=== PATIENT | female | born 1960 | race Caucasian/White ===

== ENCOUNTER 2021-02-06 15:19 | Emergency (ER) | payer OTHER ==
[~2021-02-06] VITALS: Ht 152.4 cm; Wt 54.9 kg
[~2021-02-06 15:19] MED LIST: APIDRA SOL100 UNIT/1 SQ; JANUMET 50-1,01 EACH PO; LOPID600 MG PO; NEURONTIN 400400 MG PO; PROTONIX 40 MG40 M1 PO; TAMIFLU75 MG PO; TENORMIN 50 MG50 MG PO; TRESIBA SQ; VENLAFAXINE HC150 M1 PO; VITAMIN D250000 UNIT PO
[2021-02-06 16:51] LABS: HEMOGLOBIN 15.7 gm/dl (12.3-15.3); RED BLOOD COUNT 5.22 M/UL (4.00-5.10); WHITE BLOOD COUNT 8.7 K/UL (4.5-11.0)
[2021-02-06 17:17] LABS: BUN/CREATININE RATIO 39 (0-10)
[2021-02-06] MEDS ORDERED: DECADRON6 MG PO (19:57)
[2021-02-06] MEDS ORDERED: ZITHROMAX250 MG PO (19:57)
[2021-02-06] MEDS ORDERED: ASPIRIN CHEWABL81 MG PO (19:58)
[2021-02-06] MEDS ORDERED: ZOFRAN ODT 4 MG4 MG GT (20:06)
== END 2021-02-06 21:00 | disposition home or self-care (01) ==
LOC: ER1 15:19
PROVIDERS: Family Medicine
DX: Z23 Encounter for immunization (principal); U07.1 COVID-19; J12.82 Pneumonia due to coronavirus disease 2019; I10 Essential (primary) hypertension; E11.9 Type 2 diabetes mellitus without complications
CPT/HCPCS: 36600; 71045; 80053; 82803; 83615; 85025; 86140; 93005; 96365; 96368; 96375; 99284; J1100; J2405; J7030; M0243

== ENCOUNTER 2021-02-22 11:06 | Emergency (ER) | payer OTHER ==
[~2021-02-22 11:06] MED LIST changes: +ASPIRIN CHEWABL81 MG PO; +DECADRON6 MG PO; +ZITHROMAX250 MG PO; +ZOFRAN ODT 4 MG4 MG GT
[2021-02-22 12:12] LABS: HEMOGLOBIN 14.9 gm/dl (12.3-15.3); RED BLOOD COUNT 4.56 M/UL (4.00-5.10); WHITE BLOOD COUNT 15.2 K/UL (4.5-11.0)
[2021-02-22 12:33] LABS: BUN/CREATININE RATIO 26 (0-10)
[2021-02-22] MEDS ORDERED: AUGMENTIN 875-1 EACH PO (14:37)
== END 2021-02-22 14:30 | disposition home or self-care (01) ==
LOC: ER1 11:06
DX: R06.00 Dyspnea, unspecified (principal); R53.1 Weakness; I10 Essential (primary) hypertension; E11.65 Type 2 diabetes mellitus with hyperglycemia
CPT/HCPCS: 71045; 71275; 80053; 82550; 82553; 83874; 84484; 85025; 93005; 99285; J7030; Q9967

== ENCOUNTER → 2021-06-15 | Outpatient (CLI) | payer OTHER ==
[~2021-06-15] MED LIST changes: +AUGMENTIN 875-1 EACH PO
== END ==
LOC: HEART 5 13:36
DX: R06.00 Dyspnea, unspecified (principal)
CPT/HCPCS: 94010; 94729

== ENCOUNTER → 2021-06-21 | Outpatient (CLI) | payer OTHER ==
[2021-06-21 10:40] LABS: HEMOGLOBIN 16.1 gm/dl (12.3-15.3); RED BLOOD COUNT 5.11 M/UL (4.00-5.10)
== END ==
LOC: CT 10:12
PROVIDERS: Internal Medicine Pulmonary Disease
DX: R06.00 Dyspnea, unspecified (principal); Z86.16 Personal history of COVID-19; R91.8 Other nonspecific abnormal finding of lung field
CPT/HCPCS: 36415; 71250; 83880; 85025; 85379

== ENCOUNTER → 2022-02-14 | Outpatient (CLI) | payer OTHER | LOC: EXRD 12:49 | DX: R80.9 Proteinuria, unspecified (principal) | CPT/HCPCS: 76775 ==